=== PATIENT | female | born 1995 | race African-American/Black ===

== ENCOUNTER → 2018-03-06 | Outpatient (CLI) | payer OTHER | END | disposition home or self-care (01) | LOC: US 15:09 | DX: Z30.431 Encounter for routine checking of intrauterine contraceptive device (principal) | CPT/HCPCS: 76830; 76856 ==

== ENCOUNTER → 2019-04-08 | Outpatient (CLI) | payer OTHER ==
--- NOTE | 2019-04-08 16:16 | RAD ---
EXAM: Bilateral ankles, 3 views. HISTORY: Instability. COMPARISON: None. FINDINGS: 3 views of both ankles are obtained. There is no fracture, dislocation or subluxation. No osteochondral lesion is seen. There is no evidence of coalition. IMPRESSION: No acute osseous finding. Electronically signed by: Gudelia Silver MD (04/08/2019 4:13 PM) [facility]
== END | disposition home or self-care (01) ==
LOC: RAD 15:27
PROVIDERS: ATTEND Nurse Practitioner Gerontology
DX: M25.371 Other instability, right ankle (principal); M25.372 Other instability, left ankle
CPT/HCPCS: 73610

== ENCOUNTER 2019-11-25 20:41 | Emergency (ER) | payer SELFPAY ==
[~2019-11-25] VITALS: Ht 165.1 cm; Wt 122.5 kg
--- NOTE | 2019-11-25 21:15 | PHYS DOC ---
Past Medical History Past Medical History: No Pertinent History Past Surgical History: Other Additional Past Surgical Histo: right hand surgery Smoking Status: Current Some Day Smoker Alcohol Use: Occasionally Drug Use: None General Adult EDM: Chief Complaint: SKIN RASH/ABSCESS HPI: HPI: Patient is a 23 year old female who presents with complaint of pain and rash to her lower legs that started about 2-3 days ago. She states that she is also had some increase in swelling to her legs. She denies any chest pain or shortness breath. She also denies any fever. Patient is not sure of cause and has not been exposed to anyone with similar rash. She does indicate that the rash itches but is painful when she scratches it.[] Review of Systems: Review of Systems: Constitutional: Denies fever or chills. [] Respiratory: Denies cough or shortness of breath. [] Cardiovascular: Denies chest pain or edema. [] GI: Denies abdominal pain, nausea, vomiting, bloody stools or diarrhea. [] Musculoskeletal: Complains of bilateral lower leg pain. [] Integument: Complains of rash to bilateral lower legs. [] Neurologic: Denies headache, focal weakness or sensory changes. [] A full 10 point review of systems has been reviewed and is otherwise negative. Heart Score: Risk Factors: Risk Factors: DM, Current or recent (<one month) smoker, HTN, HLP, family history of CAD, obesity. Risk Scores: Score 0 - 3: 2.5% MACE over next 6 weeks - Discharge Home Score 4 - 6: 20.3% MACE over next 6 weeks - Admit for Clinical Observation Score 7 - 10: 72.7% MACE over next 6 weeks - Early Invasive Strategies Allergies: Allergies: Allergies Coded Allergies Type Severity Reaction Last Updated Verified No Known Drug Allergies 11/25/19 No Physical Exam: PE: Constitutional: Well developed, well nourished, no acute distress, non-toxic appearance. [] HENT: Normocephalic, atraumatic, bilateral external ears normal, oropharynx moist, no oral exudates, nose normal. [] Eyes: PERRLA, EOMI, conjunctiva normal, no discharge. [] Neck: Normal range of motion, no tenderness, supple, no stridor. [] Cardiovascular: Mildly tachycardic rate with regular rhythm[] Lungs & Thorax: Bilateral breath sounds clear to auscultation [] Abdomen: Bowel sounds normal, soft, no tenderness, no masses, no pulsatile masses. [] Skin: There are erythematous, slightly raised lesions to lower legs, measuring from millimeters in diameter up to about 3 cm in diameter. [] Extremities: No tenderness, no cyanosis, no clubbing, ROM intact, with nonpitting edema. [] Neurologic: Alert and oriented X 3, no focal deficits noted. [] Current Patient Data: Vital Signs: Vital Signs Date Time Temp Pulse Resp B/P (MAP) Pulse Ox O2 Delivery O2 Flow Rate FiO2 11/25/19 20:50 98.3 145 20 98 Room Air 98.3 EKG: EKG: [] Radiology/Procedures: Radiology/Procedures: [] Course & Med Decision Making: Course & Med Decision Making Pertinent Labs and Imaging studies reviewed. (See chart for details) [] Dragon Disclaimer: Dragon Disclaimer: This electronic medical record was generated, in whole or in part, using a voice recognition dictation system. Departure Departure Impression: Primary Impression: Rash Additional Impression: Elevated C-reactive protein (CRP) Disposition: 01 HOME, SELF-CARE Condition: STABLE Referrals: NO PCP (PCP) Patient Instructions: C-Reactive Protein Test (CRP), Form - Excuse from Work, School, or Physical Activity, Rash Additional Instructions: Follow-up with a primary care physician to further evaluate your elevated C- reactive protein. Take the prescribed medication as directed. Scripts Prednisone (PREDNISONE) 20 Mg Tablet 3 TAB PO DAILY, #15 TAB Prov: DON BATES Jr. DO 11/25/19 DON BATES Jr. DO Nov 25, 2019 21:15
[2019-11-25 21:18] LABS: BASO % 0 % (0-3); EOS # 0.2 x10^3/uL (0.0-0.7); EOS % 3 % (0-3); HEMATOCRIT 42.3 % (36.0-47.0); HEMOGLOBIN 13.7 g/dL (12.0-15.5); LYMPH # 0.3 x10^3/uL (1.0-4.8); LYMPH % 5 % (24-48); MEAN CORPUSCULAR HEMOGLOBIN 26 pg (25-35); MEAN CORPUSCULAR HGB CONC 32 g/dL (31-37); MEAN CORPUSCULAR VOLUME 79 fL (79-100); MONO # 0.2 x10^3/uL (0.0-1.1); MONO % 4 % (0-9); NEUT % 87 % (31-73); PLATELET COUNT 317 x10^3/uL (140-400); RED BLOOD COUNT 5.35 x10^6/uL (3.50-5.40); RED CELL DISTRIBUTION WIDTH 14.9 % (11.5-14.5); WHITE BLOOD COUNT 5.7 x10^3/uL (4.0-11.0)
[2019-11-25 21:26] LABS: CREATININE 1.2 mg/dL (0.6-1.0); GFR 66.2; POTASSIUM 4.3 mmol/L (3.5-5.1)
[2019-11-25 21:28] LABS: C-REACTIVE PROTEIN 58.4 mg/L (0-3.3)
[2019-11-25] MEDS ORDERED: LIDOCAINE 1% Multi-Dose 20 ML VIAL. ONE (21:42)
[2019-11-25 22:03] LABS: % BANDS 3 % (0-9); % EOS 4 % (0-5); % LYMPHS 6 % (24-48); % MONOS 7 % (0-10); % SEGS 80 % (35-66); PLT ESTIMATE ADEQUATE (ADEQUATE)
[2019-11-25 22:30] VITALS: BP 166/80
[2019-11-25] MEDS ORDERED: PRED20TA PO (22:33)
== END 2019-11-25 22:43 | disposition home or self-care (01) ==
LOC: ER 20:41
DX: R21 Rash and other nonspecific skin eruption (principal); R79.82 Elevated C-reactive protein (CRP); F17.200 Nicotine dependence, unspecified, uncomplicated
CPT/HCPCS: 36415; 80048; 85007; 85025; 85651; 86140; 99283-25